=== PATIENT | male | born 2000 | race Caucasian/White ===

== ENCOUNTER 2021-04-30 22:34 | Emergency (ER) | payer OTHER ==
[~2021-04-30] VITALS: Ht 188 cm; Wt 79.1 kg
--- NOTE | 2021-04-30 22:37 | PHYS DOC ---
Past History Past Medical History History of COVID infection-after vaccination x2. General Adult HPI: HPI: ".. I ve had chest pain or discomfort for a week now.. and this chronic head ache... I had COVID in Nov... after I had my shots.... My doctors thinks I have long covid now.."I ve had the constant chest pain or discomfort.. past week.. more the last two days.. .. and headache more the two days... " Patient is a 21 year old male who presents with above hx and complaints of chest pain for past week. Pt. also complaints migraine headache. No recent travel. No severe ill contacts. No history of trauma. Pain is reproducible with palpitations and deep breaths. Patient only follows at [facility]. Pt. follows with Dr. Moises Wilkinson Review of Systems: Review of Systems: Constitutional: Denies fever or chills Eyes: Denies change in visual acuity HENT: Denies nasal congestion or sore throat Respiratory: Denies cough or shortness of breath Cardiovascular: Complains of chest pain GI: Denies abdominal pain, nausea, vomiting, bloody stools or diarrhea : Denies dysuria Musculoskeletal: Denies back pain or joint pain Integument: Denies rash Neurologic: Denies headache, focal weakness or sensory changes Endocrine: Denies polyuria or polydipsia Lymphatic: Denies swollen glands Psychiatric: Denies depression or anxiety Family History: Family History: Noncontributory to presentation Current Medications: Current Meds: See nursing for home meds Allergies: Allergies: Allergic to morphine Physical Exam: PE: Constitutional: Well developed, well nourished, moderate acute distress, non- toxic appearance. [] HENT: Normocephalic, atraumatic, bilateral external ears normal, oropharynx moist, no oral exudates, nose normal. [] Eyes: PERRLA, EOMI, conjunctiva normal, no discharge. [] Neck: Normal range of motion, no tenderness, supple, no stridor. [] Cardiovascular:Heart rate regular rhythm, no murmur [] Lungs & Thorax: Bilateral breath sounds equal and apex auscultation [] with palpation had tenderness along the costal cartilage junction sternum. Abdomen: Bowel sounds normal, soft, no tenderness, no large spleen , no pulsatile masses. [] Skin: Warm, dry, no erythema, no rash. [] Back: No tenderness, no CVA tenderness. [] Extremities: No tenderness, no cyanosis, no clubbing, ROM intact, no edema. [] No cording appreciated. Neurologic: Alert and oriented X 3, moves extremities on request, does have distal sensory,, no focal deficits noted. [] Psychologic: Affect anxious, judgement normal, mood normal. [] EKG: EKG: My interpretation of EKG shows a sinus rhythm at [id number] 80 bpm. Right axis. No findings of acute morphology. No findings acute STEMI. Time EKG at 22 55 hours. [] My interpretation of second EKG shows a sinus rhythm at 72 bpm. Overall morphology is same as prior EKG other than a switching of leads V2 and V3. No findings acute STEMI of contralateral changes. Time of this EKG is 0 to 59 hours Radiology/Procedures: Radiology/Procedures: [[address] [address] IMAGING REPORT Signed PATIENT: GHISLAINE TORRES ACCOUNT: [id number] : 2000 LOCATION: ER AGE: 21 SEX: M EXAM STATUS: REG ER ORD. PHYSICIAN: WARREN ARITA MD REASON: OMNI 350, 100ML IV. Chest wall pain, elev. D-dimer PROCEDURE: CT ANGIOGRAPHY CHEST Study: CT CHEST WITH CONTRAST - PULMONARY ANGIOGRAM History: Chest wall pain, elevated d-dimer Comparison: None Technique: Helical CT of the chest performed after the administration of 100 mL Omnipaque 350 intravenous contrast and timed for angiographic evaluation of the pulmonary arteries per PE protocol. Coronal and sagittal 3D MIP reformations were obtained. One or more of the following individualized dose reduction techniques were utilized for this examination: 1. Automated exposure control 2. Adjustment of the mA and/or kV according to patient size 3. Use of iterative reconstruction technique. Findings: Pulmonary Arteries: Contrast bolus is adequate. There is no acute pulmonary embolism. Heart/Systemic Vasculature: The heart is normal in size. No pericardial effusion. The thoracic aorta is normal in caliber Mediastinum: There is residual thymic tissue in the anterior mediastinum. Prominent AP window lymph node measuring 1.7 x 1.7 cm versus incidental fluid in a pericardial recess. Lungs: The lungs are clear. No pleural effusion or pneumothorax. Neck/Axilla/Body Wall: No axillary lymphadenopathy. Upper Abdomen: The spleen is enlarged measuring 15 cm in AP diameter. Bones: No acute osseous abnormality. Miscellaneous: None IMPRESSION: 1. No acute pulmonary embolism. 2. Possible enlarged AP window lymph node versus more likely incidental fluid in a pericardial recess. Residual thymic tissue. Follow-up CT could be obtained to ensure stability. 3. Mild splenomegaly. Electronically signed by: Denae Loving MD (05/01/2021 2:35 AM) [address] [address] IMAGING REPORT Signed PATIENT: GHISLAINE TORRES ACCOUNT: [id number] : 2000 LOCATION: ER AGE: 21 SEX: M EXAM STATUS: PRE ER ORD. PHYSICIAN: WARREN ARITA MD REASON: cp PROCEDURE: PORTABLE CHEST 1V Exam: Chest one view INDICATION: Chest pain TECHNIQUE: Frontal view which Comparisons: None FINDINGS: The cardiomediastinal silhouette and pulmonary vessels are within normal limits. The lung and pleural spaces are clear. IMPRESSION: No acute cardiopulmonary process. Electronically signed by: Serjio León MD (04/30/2021 11:32 PM) [facility] DICTATED AND SIGNED BY: SERJIO LEÓN MD DATE: 04/30/212328 CC: CARTER WILKINSON MD; WARREN ARITA MD ~[facility]0 0 ][address] [address] IMAGING REPORT Signed PATIENT: GHISLAINE TORRES ACCOUNT: [id number] : 2000 LOCATION: ER AGE: 21 SEX: M EXAM STATUS: PRE ER ORD. PHYSICIAN: WARREN ARITA MD REASON: head pain PROCEDURE: CT HEAD WO CONTRAST Exam: CT head INDICATION: Head pain TECHNIQUE: Sequential axial images through the head were obtained without the administration of IV contrast. Exposure: One or more of the following in the visualized dose reduction techniques were utilized for this examination: 1. Automated exposure control 2. Adjustment of the MA and/or KV according to patient size 3. Use of iterative of reconstructive technique Comparisons: None FINDINGS: No focal parenchymal lesion or hemorrhage is identified. There is no midline shift or sulcal effacement. No acute vascular territory infarction is identified. Jimenez-white distinction is preserved. The ventricular system is within normal limits without compression hydrocephalus. The basal cisterns are well maintained. The visualized portions of the paranasal sinuses and mastoid air cells are well- pneumatized. No acute fractures. IMPRESSION: No acute intracranial abnormality. Electronically signed by: Serjio León MD (04/30/2021 11:29 PM) [facility] DICTATED AND SIGNED BY: SERJIO LEÓN MD DATE: 04/30/212325 CC: CARTER WILKINSON MD; WARREN ARITA MD ~MTH0 0 Heart Score: C/O Chest Pain: Yes HEART Score for Chest Pain: HEART Score for Chest Pain Response (Comments) Value History Slighlty/Non-Suspicious 0 ECG Normal 0 Age < 45 0 Risk Factors No Risk Factors 0 Troponin < Normal Limit 0 Total 0 Risk Factors: Risk Factors: DM, Current or recent (<one month) smoker, HTN, HLP, family history of CAD, obesity. Risk Scores: Score 0 - 3: 2.5% MACE over next 6 weeks - Discharge Home Score 4 - 6: 20.3% MACE over next 6 weeks - Admit for Clinical Observation Score 7 - 10: 72.7% MACE over next 6 weeks - Early Invasive Strategies Course & Med Decision Making: Course & Med Decision Making Pertinent Labs and Imaging studies reviewed. (See chart for details) Keep follow up with primary.. Follow-up pending lab levels. Avoid contact sports. Repeat CBC and BMP with LFTs in 1 to 2 weeks.Consider outpatient stress testing, return if any concerns. Take Tylenol and ibuprofen only at therapeutic doses. Impression: 1. Atypical chest wall pain 2. Possible post Covid sequela ( Infection Nov) 3. Leukocytosis 12.9 with 53 lymphocytes and 30 monocytes atypical 4. Elevated D-dimer 1.60 5. Thrombocytopenia 129 6. Elevated bilirubin 5.2 and direct 4.0 7. Elevated AST 837 ALT 1317 and alk phos 277 8. Splenomegaly and adenopathy [] Dragon Disclaimer: Dragon Disclaimer: This electronic medical record was generated, in whole or in part, using a voice recognition dictation system. Departure Departure: Referrals: CARTER WILKINSON MD (PCP) [place] Disclaimer This chart was dictated in whole or in part using Voice Recognition software in a busy, high-work load, and often noisy Emergency Department environment. It may contain unintended and wholly unrecognized errors or omissions. Dragon Disclaimer This chart was dictated in whole or in part using Voice Recognition software in a busy, high-work load, and often noisy Emergency Department environment. It may contain unintended and wholly unrecognized errors or omissions. WARREN ARITA MD Apr 30, 2021 22:37
[2021-04-30] MEDS ORDERED: IV RINGERS SOLUTION,LACTATED 1,000 ML IV SCH (22:45)
--- NOTE | 2021-04-30 23:26 | EKG ---
[address] [address] Test Date: 2021-04-30 Test Time: 22:55:25 Pat Name: GHISLAINE TORRES Department: Room: Gender: M Rn Resource Nurse: : 2000 Requested By: WARREN ARITA Order Number: [id number] Reading MD: Hollis Rothman MD Measurements Intervals [place] Rate: 80 P: 28 [place]: 142 QRS: 94 QRSD: 96 T: 13 QT: 362 QTc: 421 Interpretive Statements SINUS RHYTHM Electronically Signed On 05-04-2021 11:07:50 ANDROID IOS DEVELOPER by Hollis Rothman MD
[2021-04-30 23:29] LABS: BASO # 0.1 x10^3/uL (0.0-0.2); BASO % 0 % (0-3); EOS % 0 % (0-3); HEMATOCRIT 45.1 % (39.0-53.0); LYMPH # 10.3 x10^3/uL (1.0-4.8); LYMPH % 80 % (24-48); MEAN CORPUSCULAR HEMOGLOBIN 30 pg (25-35); MEAN CORPUSCULAR HGB CONC 33 g/dL (31-37); MEAN CORPUSCULAR VOLUME 91 fL (79-100); MONO # 1.2 x10^3/uL (0.0-1.1); MONO % 9 % (0-9); NEUT # 1.4 x10^3uL (1.8-7.7); NEUT % 11 % (31-73); PLATELET COUNT 129 x10^3/uL (140-400); RED BLOOD COUNT 4.95 x10^6/uL (4.30-5.70); RED CELL DISTRIBUTION WIDTH 13.9 % (11.5-14.5); WHITE BLOOD COUNT 12.9 x10^3/uL (4.0-11.0)
--- NOTE | 2021-04-30 23:32 | RAD ---
Exam: CT head INDICATION: Head pain TECHNIQUE: Sequential axial images through the head were obtained without the administration of IV co ntrast. Exposure: One or more of the following in the visualized dose reduction techniques were utilized for this examination: 1. Automated exposure control 2. Adjustment of the MA and/or KV according to patient size 3. Use of iterative of reconstructive technique Comparisons: None FINDINGS: No focal parenchymal lesion or hemorrhage is identified. There is no midline shift or sulcal effaceme nt. No acute vascular territory infarction is identified. Jimenez-white distinction is preserved. The ventricular system is within normal limits without compression hydrocephalus. The basal cisterns are well maintained. The visualized portions of the paranasal sinuses and mastoid air cells are well-pneumatized. No acute fractures. IMPRESSION: No acute intracranial abnormality. Electronically signed by: Serjio Pearce MD (04/30/2021 11:29 PM) [facility]
[2021-04-30 23:34] LABS: CREATININE 0.9 mg/dL (0.7-1.3); GFR 106.5; POTASSIUM 3.7 mmol/L (3.5-5.1)
--- NOTE | 2021-04-30 23:34 | RAD ---
Exam: Chest one view INDICATION: Chest pain TECHNIQUE: Frontal view which Comparisons: None FINDINGS: The cardiomediastinal silhouette and pulmonary vessels are within normal limits. The lung and pleural spaces are clear. IMPRESSION: No acute cardiopulmonary process. Electronically signed by: Serjio Pearce MD (04/30/2021 11:32 PM) [facility]
[2021-04-30 23:35] LABS: BACTERIA,URINE 0 /HPF (0-FEW); CLARITY,URINE CLEAR; COLOR,URINE YELLOW; GLUCOSE,URINE NEG (NEG); NITRITE,URINE NEG (NEG); RBC,URINE 0 /HPF (0-2); SQUAMOUS EPITHELIAL CELL,UR OCC /LPF; WBC,URINE OCC /HPF (0-4)
[2021-04-30 23:46] LABS: ALBUMIN 3.5 g/dL (3.4-5.0); MAGNESIUM 2.2 mg/dL (1.8-2.4); TOTAL BILIRUBIN 5.2 mg/dL (0.2-1.0)
[2021-04-30 23:49] LABS: % ATYL 30 % (0-0); % BANDS 4 % (0-9); % BASOS 1 % (0-3); % LYMPHS 53 % (24-48); % MONOS 3 % (0-10); % SEGS 9 % (35-66); PLT ESTIMATE DECREASED (ADEQUATE)
[2021-04-30 23:57] LABS: INFLUENZA A PATIENT NEGATIVE (NEGATIVE); INFLUENZA B PATIENT NEGATIVE (NEGATIVE)
[2021-05-01] MEDS ORDERED: HYDROcodon/IBUPROFEN 7.5/200MG 1 TAB TABLET ONE (00:23)
[2021-05-01] MEDS ORDERED: KETOROLAC 30 MG/ML VIAL. IVP ONE (01:15)
[2021-05-01] MEDS ORDERED: CONTRAST GIVEN. MC PRN (01:30)
[2021-05-01] MEDS ORDERED: IOHEXOL 350 MG/ML 100 ML VIAL. IV ONE (01:30)
--- NOTE | 2021-05-01 02:38 | RAD ---
Study: CT CHEST WITH CONTRAST - PULMONARY ANGIOGRAM History: Chest wall pain, elevated d-dimer Comparison: None Technique: Helical CT of the chest performed after the administration of 100 mL Omnipaque 350 intrav enous contrast and timed for angiographic evaluation of the pulmonary arteries per PE protocol. Coron al and sagittal 3D MIP reformations were obtained. One or more of the following individualized dose reduction techniques were utilized for this examinat ion: 1. Automated exposure control 2. Adjustment of the mA and/or kV according to patient size 3. Use of iterative reconstruction technique. Findings: Pulmonary Arteries: Contrast bolus is adequate. There is no acute pulmonary embolism. Heart/Systemic Vasculature: The heart is normal in size. No pericardial effusion. The thoracic aorta is normal in caliber Mediastinum: There is residual thymic tissue in the anterior mediastinum. Prominent AP window lymph n ode measuring 1.7 x 1.7 cm versus incidental fluid in a pericardial recess. Lungs: The lungs are clear. No pleural effusion or pneumothorax. Neck/Axilla/Body Wall: No axillary lymphadenopathy. Upper Abdomen: The spleen is enlarged measuring 15 cm in AP diameter. Bones: No acute osseous abnormality. Miscellaneous: None IMPRESSION: 1. No acute pulmonary embolism. 2. Possible enlarged AP window lymph node versus more likely incidental fluid in a pericardial reces s. Residual thymic tissue. Follow-up CT could be obtained to ensure stability. 3. Mild splenomegaly. Electronically signed by: Denae Loving MD (05/01/2021 2:35 AM) [facility]
[2021-05-01] MEDS ORDERED: HYDROcodon/IBUPROFEN 7.5/200MG 1 TAB TABLET PO ONE ×2 (03:00)
[2021-05-01] MEDS ORDERED: methylPREDNISolone ACETATE 40 MG/ML VIAL. IM ONE (03:30)
[2021-05-01 04:30] VITALS: BP 110/52
--- NOTE | 2021-05-01 05:40 | EKG ---
[address] [address] Test Date: 2021-05-01 Test Time: 02:59:17 Pat Name: GHISLAINE TORRES Department: Room: Gender: M Detective [employer] Section: : 2000 Requested By: WARREN ARITA Order Number: [id number] Reading MD: Hollis Rothman MD Measurements Intervals [place] Rate: 72 P: 26 [place]: 144 QRS: 90 QRSD: 100 T: 16 QT: 404 QTc: 444 Interpretive Statements SINUS RHYTHM Electronically Signed On 05-04-2021 11:07:27 SUPERVISOR ENGRAVING by Hollis Rothman MD
== END 2021-05-01 04:35 | disposition home or self-care (01) ==
LOC: ER 22:34
DX: R07.89 Other chest pain (principal); D72.829 Elevated white blood cell count, unspecified; R79.1 Abnormal coagulation profile; D69.6 Thrombocytopenia, unspecified; E80.6 Other disorders of bilirubin metabolism; R79.89 Other specified abnormal findings of blood chemistry; R16.1 Splenomegaly, not elsewhere classified; R59.9 Enlarged lymph nodes, unspecified; Z86.16 Personal history of COVID-19; Z20.822 Contact with and (suspected) exposure to COVID-19; Z88.5 Allergy status to narcotic agent
CPT/HCPCS: 36415; 70450; 71045; 71275; 80048; 80076; 81001; 82550; 83690; 83735; 83880; 84443; 84484; 85007; 85025; 85379; 85610; 85730; 86140; 86200; 86705; 86709; 86803; 87340; 87428; 93005; 96361; 96372; 96374; 99285; J1030; J1885; J7120; Q9967